=== PATIENT | male | born 1980 | race African-American/Black ===

== ENCOUNTER 2016-12-23 09:10 | Day surgery (SDC) | payer OTHER ==
[~2016-12-23] VITALS: Ht 175.3 cm; Wt 99.8 kg
[2016-12-23] MEDS: IV RINGERS,LACTATED 1000ML 1,000 ML IV SCH ×2 (07:00→14:44)
[~2016-12-23 09:10] MED LIST: ATOR20TA58 PO; BUPR150T8 PO; CALC300T5 PO; CLON0.2T PO; IBUP-1007 PO; LIDOCAINE 1% 1 ML SYRINGE. ID PRN; LISI1TAB7 PO; LORA10TA68 PO; METO50TA2 PO; MORPHINE SULFATE 2 MG/ML DISP.SYRIN. IV PRN; ONDANSETRON PF 4 MG/2 ML VIAL. IV PRN; PREG50CA PO; PROCHLORPERAZINE 10 MG/2 ML VIAL. IV PRN; TAMS0.4C97 PO; fentaNYL PF VIAL 100 MCG/2 ML VIAL IV PRN
[2016-12-23] MEDS ORDERED: IOHEXOL 300 MG/ML 50 ML VIAL. ONE ×2 (09:47→13:02)
[2016-12-23] MEDS ORDERED: LIDOCAINE 2% JELLY 6ML IN APPLICATOR. ONE (09:47)
--- NOTE | 2016-12-23 10:01 | PREOP HP ---
DATE OF SERVICE: 12/23/2016 The patient is coming in for operation on 12/23/2016. PROCEDURE: Left ureteroscopy with laser lithotripsy and left ureteral stent placement. HISTORY OF PRESENT ILLNESS: The patient is a very pleasant 35-year-old white male with history of stone disease. The patient had been having some hematuria. The patient had workup including a CT urogram, which shows him to have a nonobstructing left distal ureteral stone measuring 7 x 4 mm. The patient is asymptomatic of the stone. He has had prior stones before and had prior ureteroscopies and laser lithotripsies and ESWL in the past for prior stones. PAST MEDICAL HISTORY: Significant for hyperlipidemia, hypertension, and history of kidney stones. PAST SURGICAL HISTORY: Kidney stone surgery in the past and a broken nose surgery. MEDICATIONS: Alpha lipoic, ferritin, atorvastatin, clonidine, lisinopril, metoprolol, Tums, and Wellbutrin. ALLERGIES: The patient has no known drug allergies. REVIEW OF SYSTEMS: The patient is feeling well. PHYSICAL EXAMINATION: GENERAL: The patient is a well-developed, well-nourished white male in no acute distress. HEENT: Normocephalic, atraumatic. NECK: Supple. CHEST: Clear to auscultation. CARDIOVASCULAR: Regular rate and rhythm. ABDOMEN: Soft, nontender, no CVA tenderness. EXTREMITIES: Without clubbing, cyanosis, or edema. NEUROLOGIC: Grossly intact. LABORATORY DATA: The patient's creatinine is 1.3, white count 6.8 and platelet count 185,000. The patient's CT urogram shows the 7 x 4 mm left distal ureteral stone, but there is no obstruction to urine flow, and the patient is asymptomatic of the stone. PLAN: I did discuss with the patient the options, alternatives, benefits, risks, and possible complications of medical expulsive therapy versus surgical intervention. The stone most likely has been in the left distal ureter and nonobstructing for a period of time and is asymptomatic. Most likely, the stone will not pass any time in the near future. I discussed with the patient the options, alternatives, benefits, risks, and possible complications of medical expulsive therapy versus surgical intervention with cystoscopy, left retrograde pyelogram, possible left ureteroscopy, possible left laser lithotripsy and left ureteral stent placement. He understands this and does wish to proceed with operation. We will, therefore, get this scheduled for this coming month under general anesthetic as an outpatient. The patient understands this and does wish to proceed with operation. We will, therefore, proceed accordingly. BEV SERRANO MD DR: KATHERINE/stephanie JOB#: [id number] / [id number]
[2016-12-23 10:24] LABS: BASO # 0.1 x10^3/uL (0.0-0.2); BASO % 1 % (0-3); EOS % 2 % (0-3); HEMATOCRIT 44.8 % (39.0-53.0); HEMOGLOBIN 15.4 g/dL (13.0-17.5); LYMPH # 1.6 x10^3/uL (1.0-4.8); LYMPH % 22 % (24-48); MEAN CORPUSCULAR HEMOGLOBIN 33 pg (25-35); MEAN CORPUSCULAR HGB CONC 35 g/dL (31-37); MEAN CORPUSCULAR VOLUME 97 fL (79-100); MONO % 6 % (0-9); NEUT % 68 % (31-73); PLATELET COUNT 172 x10^3/uL (140-400); RED BLOOD COUNT 4.62 x10^6/uL (4.30-5.70); RED CELL DISTRIBUTION WIDTH 13.3 % (11.5-14.5)
[2016-12-23 10:33] LABS: CALCIUM 9.5 mg/dL (8.5-10.1); CREATININE 1.3 mg/dL (0.7-1.3); GFR 74.8; POTASSIUM 4.3 mmol/L (3.5-5.1)
[2016-12-23] MEDS ORDERED: DEXAMETHASONE SOD PHOS 20 MG/5 ML VIAL. ONE (11:18)
[2016-12-23] MEDS ORDERED: ONDANSETRON PF 4 MG/2 ML VIAL. ONE (11:18)
[2016-12-23] MEDS ORDERED: fentaNYL PF VIAL 100 MCG/2 ML VIAL ONE (11:18)
[2016-12-23] MEDS ORDERED: LIDOCAINE 2% PF Vial for OR 5 ML VIAL. ONE (11:18)
[2016-12-23] MEDS ORDERED: PROPOFOL 20 ML IV ONE (11:18)
[2016-12-23] MEDS ORDERED: IV RINGERS,LACTATED 1000ML 1,000 ML IV SCH (11:22)
[2016-12-23] MEDS ORDERED: PROCHLORPERAZINE 10 MG/2 ML VIAL. IV PRN (11:30)
[2016-12-23] MEDS ORDERED: diphenhydrAMINE 50 MG/ML VIAL IV PRN (11:30)
[2016-12-23] MEDS ORDERED: MIDAZOLAM HCL/PF 2 MG/2 ML VIAL. IV PRN ×2 (11:30)
[2016-12-23] MEDS ORDERED: HYDROmorphone 2 MG/ML VIAL IV PRN (11:30)
[2016-12-23] MEDS ORDERED: MEPERIDINE PF 25 MG/ML VIAL. IV PRN (11:30)
[2016-12-23] MEDS ORDERED: MORPHINE SULFATE 4 MG/ML DISP.SYRIN. IV PRN (11:30)
[2016-12-23] MEDS ORDERED: LIDOCAINE 1% 1 ML SYRINGE. ID PRN (11:30)
[2016-12-23] MEDS ORDERED: fentaNYL PF VIAL 100 MCG/2 ML VIAL IV PRN ×3 (11:30)
[2016-12-23] MEDS ORDERED: MIDAZOLAM HCL/PF 2 MG/2 ML VIAL. ONE (12:00)
[2016-12-23] MEDS ORDERED: PHENYLEPHRINE in 0.9% NACL PF 1 MG/10 ML DISP.SYRIN. IV ONE (12:18)
[2016-12-23] MEDS ORDERED: SEVOFLURANE 61 TO 120 MINUTES. IH ONE (12:40)
[2016-12-23] MEDS ORDERED: ePHEDrine PF IN SALINE 50 MG/5 ML DISP.SYRIN IV ONE (12:42)
--- NOTE | 2016-12-23 13:53 | DISCH ---
DISCHARGE INSTRUCTIONS Condition on Discharge Condition on Discharge: Stable Activity After Discharge Activity Instructions for Disc: Activity as tolerated Diet after Discharge Diet after Discharge: Regular Contacting the DR. after DC Call your doctor for: If your condition worsens Follow-Up Follow up with: return to urology office on Friday01/01/17 for cystoscopy/ stent removal BEV SERRANO MD Dec 23, 2016 13:53
--- NOTE | 2016-12-23 13:55 | PDOC4 ---
Operative Note Operative Note pre-op dx-left ureteral stone procedure-cystoscopy, left retrograde pyelogram, left ureteroscopy with laser lithotripsy and stone extraction and stent placement surgeon-rachel phillips-general Pt. to PACU in stable condition BEV SERRANO MD Dec 23, 2016 13:55
[2016-12-23] MEDS ORDERED: HYDR-971 PO (14:01)
[2016-12-23] MEDS ORDERED: CEPH-264 PO (14:02)
[2016-12-23] MEDS ORDERED: HYDROcodone/APAP 5/325MG 1 TAB TABLET PO ONE ×2 (14:15→15:30)
[2016-12-23] MEDS: HYDROmorphone 2 MG/ML VIAL IV PRN ×2 (15:07→15:21)
[2016-12-23 16:00] VITALS: BP 116/54
--- NOTE | 2016-12-24 01:15 | OP ---
DATE OF SURGERY: 12/23/2016 OPERATION: Cystoscopy, left retrograde pyelogram, left ureteroscopy with holmium laser lithotripsy, stone extraction, left ureteral stent placement. SURGEON: Bev Desouza MD ANESTHESIA: General. PREOPERATIVE DIAGNOSIS: Left ureteral stone. INDICATIONS: The patient is a very pleasant 36-year-old white male with history of stone disease who was having hematuria and intermittent discomfort in the left side, found to have a 7 mm x 4 mm left distal ureteral stone. I have discussed with the patient the options, alternatives, benefits, risks and possible complications of continued observation versus cystoscopy, left retrograde pyelogram, possible left ureteroscopy, possible laser lithotripsy and possible left ureteral stent placement. The patient understands this and does wish to proceed ahead with the operation. DESCRIPTION OF PROCEDURE: After obtaining informed consent, the patient was taken to operating room. After an excellent general anesthetic, the patient was placed in dorsal lithotomy position. Groin was prepped and draped in sterile fashion. The patient was preloaded with IV antibiotics. Panendoscopy and cystoscopy were then performed with 30 and 70 degree lenses and the 21-Mont[place]grin cystoscope sheath. The patient noted to have some slight meatal narrowing and therefore the urethral meatus was gently dilated up with Tiffanie sounds to 24 Mont[place]. Cystoscopy was performed. Penile urethra was found to be grossly normal. External sphincter appeared intact. Prostatic urethra showed mild bilobar enlargement. Bladder was entered and inspected. Both ureteral orifices were identified and found to be grossly patent. Bladder wall was smooth. There was some slight deformation of the left ureteral orifice secondary to prior ureteral procedures. Following this, a left retrograde pyelogram was performed. Before the pyelogram the patient was noted to have a radiopacity in the area of the left distal ureter consistent with the patient's stone. Retrograde pyelogram showed filling defect in the same area consistent with the patient's stone with dilation above that level. Following this, a floppy tipped ZIPwire was able to be passed up the left ureteral orifice past the stone up the ureter into the left kidney. Following this, a 5-Montenegrin Pollack catheter was passed over the ZIPwire past the stone to the left kidney. Retrograde pyelogram showed dilation of the left renal pelvis and calices. ZIPwire was then replaced, Pollack catheter removed and then following this, the left distal ureter and ureteral orifice were then gently dilated with balloon dilator. Balloon dilator was removed leaving the ZIPwire in place as a safety wire. Bladder was then drained, cystoscope withdrawn from the patient. Following this, the thin rigid ureteroscope was then passed per urethra up alongside the ZIPwire up the left ureteral orifice up the left ureter to the level of the stone. Stone was then encountered and found to be sharif in color. Stone was then treated with holmium laser fiber at a power setting of 0.5 and 10. Stone was fragmented in approximately 2 mm fragments, which were then removed from the patient with the 0 tip nitinol basket. Stone fragments were sent for stone analysis. After all significant fragments were removed retrograde pyelogram showed the ureter intact and therefore the ureteroscope was withdrawn from the patient, cystoscope then replaced and then a 6 x 26 double-J stent was then passed up the ZIPwire, placing one curl in the left kidney and the other curl in the bladder and the ZIPwire removed. Stent position was checked by fluoroscopy and direct vision, found to be in good position. Following this, bladder was then drained, cystoscope withdrawn from the patient. The patient tolerated the procedure very well, was taken to recovery room in stable condition. Plan will be to have the patient follow up in the Urology office in 1 week for cystoscopy and stent removal. BEV DESOUZA MD DR: KATHERINE/stephanie JOB#: [id number] / [id number]
== END 2016-12-23 16:33 | disposition home or self-care (01) ==
LOC: EEVIPCON 09:10 → SURG 09:10
PROVIDERS: ATTEND Urology
DX: N20.1 Calculus of ureter (principal); E78.00 Pure hypercholesterolemia, unspecified; I10 Essential (primary) hypertension; M19.90 Unspecified osteoarthritis, unspecified site; F41.9 Anxiety disorder, unspecified; F32.9 Major depressive disorder, single episode, unspecified; Z87.442 Personal history of urinary calculi; Z87.39 Personal history of other diseases of the musculoskeletal system and connective tissue
CPT/HCPCS: 36415; 52356; 74420; 80048; 85027; C1769; C2617; J0690; J0780; J1100; J1170; J2250; J2370; J2405; J2704; J3010; Q9967